=== PATIENT | female | born 1960 | race Caucasian/White ===

== ENCOUNTER → 2016-06-21 | Outpatient (CLI) | payer MEDICAID ==
[~2016-06-21] MED LIST: AMLO5TAB2 PO; CALC-712 PO; ERGO400C PO; HYDR1TAB66 PO; LISI40TA PO; MULT-608 PO; NAPR-243 PO
--- OUTSIDE RECORDS SUMMARY | 2016-06-21 11:22 | XMS REPORT | Continuity of Care Document ---
Author Author [facility] Organization [facility] Address Unknown Phone Unavailable Care Team Providers Care Trim Machine Operator Name Role Phone Ana Lilia Meza PCP [phone] Source Comments Some departments are not documenting in the electronic medical record. If you do not see the information that you expected, contact Release of Information in the Health Information Management department at [phone] for further assistance in locating additional records.[facility] Active Allergies and Adverse Reactions No Known Allergies Current Medications Prescription Sig. Disp. Refills Start End Date Status Date verapamil SR (CALAN-SR) Take 180 mg by mouth Active 180 mg tablet daily. atorvastatin (LIPITOR) 40 Take 40 mg by mouth daily Active mg tablet after lunch. traMADol (ULTRAM) 50 mg Take 100 mg by mouth Active tablet three times daily. gabapentin (NEURONTIN) Take 800 mg by mouth Active 800 mg tablet three times daily. May take 1 extra tablet daily if needed methocarbamol (ROBAXIN) Take 750 mg by mouth Active 750 mg tablet three times daily. escitalopram oxalate Take 10 mg by mouth daily Active (LEXAPRO) 10 mg tablet after lunch. metoprolol tartrate Take 25 mg by mouth twice Active (LOPRESSOR) 25 mg tablet daily. One in the afternoon and one at night aspirin EC 81 mg tablet Take 81 mg by mouth Active daily. Take with food. metFORMIN (GLUCOPHAGE) Take 500 mg by mouth Active 500 mg tablet daily with dinner. meloxicam (MOBIC) 15 mg Take 15 mg by mouth Active tablet daily. [id number] PO Take 1 Tab by mouth three Active times daily. ASCORBIC ACID (C COMPLEX Take 1 Tab by mouth Active PO) daily. DOCOSAHEXANOIC ACID/EPA Take 1 Cap by mouth Active (FISH OIL PO) daily. vitamins, multiple tablet Take 1 Tab by mouth Active daily. CINNAMON BARK (CINNAMON Take 1 Tab by mouth Active PO) daily. metoprolol XL (TOPROL XL) Take 25 mg by mouth 06/11/19 Discontin 25 mg tablet daily. 17 ued amitriptyline (ELAVIL) 25 Take 25 mg by mouth at 06/11/19 Discontin mg tablet bedtime daily. [address] (CYMBALTA) Take 60 mg by mouth twice 06/11/19 Discontin 60 mg capsule daily. 17 ued chlorzoxazone(+) (PARAFON Take 500 mg by mouth four 06/11/19 Discontin FORTE DSC) 500 mg tablet times daily as needed for 17 ued Muscle Cramps. meloxicam (MOBIC) 7.5 mg Take 7.5 mg by mouth 06/11/19 Discontin tablet daily. 17 ued neomycin 500 mg tablet Take 2 Tabs by mouth 6 Tab 0 02/02/20 Discontin daily. Take 2 pills @ 16 17 ued 1pm. take 2 pills @ 3pm. take 2 pills @ 7pm. metroNIDAZOLE (FLAGYL) Take 1 Tab by mouth 6 Tab 0 02/02/20 Discontin 500 mg tablet daily. Do not drink 16 17 ued alcohol while on metronidazole, Take 2 pills @ 1pm, take 2pills @ 3pm, take 2 pills @ 7pm metFORMIN (GLUCOPHAGE) Take 500 mg by mouth 06/11/19 Discontin 500 mg tablet daily. 17 ued metFORMIN-XR(+) Take 500 mg by mouth 06/11/19 Discontin (GLUCOPHAGE XR) 500 mg daily with dinner. 17 ued extended release tablet Active Problems Problem Noted Date H/O swallowed foreign body 02/27/2016 Spondylolisthesis 09/22/2015 Lumbar stenosis 09/22/2015 Von Willebrand disease (HCC) 09/22/2015 Most Recent Encounters Date Type Specialty Providers Description 07/03/2016 [facility] Bridget Helms MD Lumbar spondylolysis Encounter 06/11/2016 PAC Office Anesthesiology Bridget Helms MD Preoperative testing Visit (Primary Dx); Encounter for blood typing; Preoperative cardiovascular examination; Lumbar spondylolysis; Essential hypertension; Blood clotting disorder (HCC) 06/11/2016 Hospital Radiology Bridget Helms MD Encounter 06/11/2016 Office Visit Bridget Ruiz MD Spondylolisthesis of lumbar region (Primary Dx); Lumbar stenosis 06/11/2016 Anesthesia Lanette Orellana APRN Event 06/11/2016 Prep for Case Bridget Ruiz MD Social History Tobacco Use Types Packs/Day Years Used Date Former Smoker Cigarettes 1 30 Quit: 05/10/2014 Smokeless Tobacco: Never Used Alcohol Use Drinks/Week oz/Week Comments Yes 0 Standard 0.0 1 mixed drink/week drinks or equivalent Last Filed Vital Signs Vital Sign Reading Time Taken Blood Pressure 129/68 06/11/2016 11:13 AM INSURANCE ADMINISTRATIVE ASSISTANT Pulse 64 06/11/2016 11:13 AM INSURANCE ADMINISTRATIVE ASSISTANT Temperature 36.6 C (97.9 F) 06/11/2016 11:13 AM INSURANCE ADMINISTRATIVE ASSISTANT Respiratory Rate 20 06/11/2016 9:32 AM INSURANCE ADMINISTRATIVE ASSISTANT Height 1.448 m (4' 9") 06/11/2016 11:13 AM INSURANCE ADMINISTRATIVE ASSISTANT Weight 74 kg (163 lb 2.3 oz) 06/11/2016 11:13 AM INSURANCE ADMINISTRATIVE ASSISTANT Body Mass Index 35.29 06/11/2016 11:13 AM INSURANCE ADMINISTRATIVE ASSISTANT Oxygen Saturation 93% 06/11/2016 11:13 AM INSURANCE ADMINISTRATIVE ASSISTANT Plan of Care Date Type Specialty Providers Description 07/03/2016 Surgery Bridget Helms MD LUMBAR 3-5 LAMINECTOMY [address], [place] [address] [phone] [phone] (Fax) 07/23/2016 Appointment Bridget Ruiz MD [address] [place] [address] [phone] (Fax) 08/20/2016 Appointment Bridget Ruiz MD [address] [place] [address] [phone] (Fax) Health Maintenance Due Date Last Done Comments Hepatitis C Screening 1959 Physical (Comprehensive) 1966 Exam Pertussis Vaccine 1970 Tetanus Vaccine 1976 Cervical Cancer Screening 1980 Breast Cancer Screening 1999 Colorectal Cancer 2009 Screening Influenza Vaccine 02/02/2016 Results from Last 3 Months TYPE & SCREEN (NOT CROSSMATCH ELIGIBLE) (06/11/2016 12:14 PM) Component Value Range ABO/RH(D) O POS Antibody Screen NEG Blood Component Type RED CELL GROUP Specimen Blood, venous - Blood COMPREHENSIVE METABOLIC PANEL (06/11/2016 12:14 PM) Component Value Range Sodium 137 137-147 MMOL/L Potassium 4.2 3.5-5.1 MMOL/L Chloride 103 98-110 MMOL/L Glucose 71 70-100 MG/DL Blood Urea Nitrogen 24 7-25 MG/DL Creatinine 0.92 0.4-1.00 MG/DL Calcium 9.6 8.5-10.6 MG/DL Total Protein 7.3 6.0-8.0 G/DL Total Bilirubin 0.3 0.3-1.2 MG/DL Albumin 4.5 3.5-5.0 G/DL Alk Phosphatase 104 25-110 U/L AST (SGOT) 25 7-40 U/L CO2 26 21-30 MMOL/L ALT (SGPT) 31 7-56 U/L Anion Gap 8 3-12 eGFR Non >60Comment: >60 mL/min The eGFR is not validated for use in drug dosing adjustments. Continue to use estimated creatinine clearance per dosing reference text. Please contact the Clinical Pharmacist for questions. eGFR >60Comment: >60 mL/min The eGFR is not validated for use in drug dosing adjustments. Continue to use estimated creatinine clearance per dosing reference text. Please contact the Clinical Pharmacist for questions. Specimen Blood PTT (APTT) (06/11/2016 12:14 PM) Component Value Range APTT 29.2 24.0-40.0 SEC Specimen Blood PROTIME INR (PT) (06/11/2016 12:14 PM) Component Value Range INR 1.0 0.8-1.2 Specimen Blood CBC (06/11/2016 12:14 PM) Component Value Range White Blood Cells 6.4 4.5-11.0 K/UL RBC 4.42 4.0-5.0 M/UL Hemoglobin 13.3 12.0-15.0 GM/DL Hematocrit 39.6 36-45 % MCV 89.6 80-100 FL MCH 30.0 26-34 PG MCHC 33.5 32.0-36.0 G/DL RDW 13.0 11-15 % Platelet Count 252 150-400 K/UL MPV 8.0 7-11 FL Specimen Blood L SPINE COMPLETE (06/11/2016 10:01 AM) Impressions 1. Stable grade 1 anterolisthesis L4 on L5 without change from flexion to extension. 2. Stable dextroconvex lower lumbar scoliosis. Finalized by Lux Salcedo M.D. on 06/11/2016 1:47 PM. Dictated by Lux Salcedo M.D. on 06/11/2016 1:44 PM. Narrative Lumbar spine, 4 views Medical history: Degenerative disc disease, back pain, anterolisthesis Comparison study: September 22, 2015 Findings: Grade 1 anterolisthesis L4 on L5 is noted measuring approximately 10 mm. With flexion and extension, there is no change in alignment. There is a focal dextroconvex scoliosis centered at L4-5 secondary to severe narrowing of the left side of the L4-5 disc space. L4-5 facet arthrosis also present. The lumbar vertebral body heights are normal. The vertebral body heights and disc spaces at the other lumbar levels are within normal limits and unchanged. Procedure Note Interface, Radiant Results - SatJun 11, 2016 1:51 PM INSURANCE ADMINISTRATIVE ASSISTANT Lumbar spine, 4 views Medical history: Degenerative disc disease, back pain, anterolisthesis Comparison study: September 22, 2015 Findings: Grade 1 anterolisthesis L4 on L5 is noted measuring approximately 10 mm. With flexion and extension, there is no change in alignment. There is a focal dextroconvex scoliosis centered at L4-5 secondary to severe narrowing of the left side of the L4-5 disc space. L4-5 facet arthrosis also present. The lumbar vertebral body heights are normal. The vertebral body heights and disc spaces at the other lumbar levels are within normal limits and unchanged. IMPRESSION 1. Stable grade 1 anterolisthesis L4 on L5 without change from flexion to extension. 2. Stable dextroconvex lower lumbar scoliosis. Finalized by Lux Salcedo M.D. on 06/11/2016 1:47 PM. Dictated by Lux Salcedo M.D. on 06/11/2016 1:44 PM.
--- NOTE | 2016-06-23 09:18 | ECHOCARDIOGRAPHY REPORT ---
PROCEDURE PHYSICIAN: KAMRYN WHITE DATE OF PROCEDURE: 06/21/2016 TWO DIMENSIONAL ECHOCARDIOGRAM REPORT PRIMARY PHYSICIAN: OTHER PHYSICIAN: REFERRING PHYSICIAN: Dr. Milli Riggins, [facility] ORDERING PHYSICIAN: INDICATION FOR THE PROCEDURE: Hypertension. MEASUREMENTS DERIVED VALUES LV DIAMETER (LAX) NORMALS NORMALS Diastolic 4.6 (3.6-5.2) Eject. Fract. 60% (60%+/-6%) Systolic (2.3-3.9) Diastolic Vol. % Shortening (0.22-0.42) Systolic Vol. Aortic Root IVS THICKNESS Diastolic 1 (0.6-1.1) LVPW THICKNESS Diastolic 0.9 (0.6-1.1) LA DIAMETER Systolic 2.9 (2.1-3.7) FINDINGS: 1. Technical quality is good. 2. The left ventricle is normal in size with normal contractility. Systolic function appeared to be normal. Estimated ejection fraction 60%. Diastolic dysfunction is suggested by Doppler. 3. The left atrium is normal in size. No clot or thrombus were seen within the left atrium. 4. The right atrium and right ventricle are normal in size. No clot or thrombus were seen within the right side. 5. Mitral valve is normal in morphology with mild mitral regurgitation noted by color Doppler flow. Doppler by color Doppler flow. Doppler across the mitral valve showed equalization of E and A, which is suggestive diastolic dysfunction. 6. Aortic valve is trileaflet with normal opening and closing pattern. No significant aortic stenosis or regurgitation was seen. 7. Tricuspid valve is normal in morphology with mild tricuspid regurgitation noted by color Doppler flow. Doppler across tricuspid valve estimated pulmonary artery pressure of 30+ right atrial pressure. 8. Pulmonic valve is functioning normally. 9. No pericardial effusion. IN CONCLUSION: 1. Normal left ventricular size and systolic function. Estimated ejection fraction 60%. Diastolic dysfunction is suggested by Doppler. 2. Mild mitral regurgitation. Mild tricuspid regurgitation. 3. Estimated pulmonary artery pressure of 35 to 40 mmHg. Job ID: [id number] Dictated Date: 06/22/2016 14:37:39 Mortgage Loan Officer Date: 06/23/2016 09:15:27 / [email or web address]
== END ==
LOC: CARD 11:18
PROVIDERS: ATTEND Internal Medicine Cardiovascular Disease
DX: M51.36 Other intervertebral disc degeneration, lumbar region (principal); Q76.2 Congenital spondylolisthesis; I10 Essential (primary) hypertension; I44.4 Left anterior fascicular block; F32.4 Major depressive disorder, single episode, in partial remission
CPT/HCPCS: 93306